=== PATIENT | female | born 1995 ===

== ENCOUNTER 2018-06-20 12:30 | Emergency (ER) | payer OTHER ==
[2018-06-20 12:43] VITALS: BMI 18.5
[2018-06-20] MEDS ORDERED: Lidocaine 2% w Epi 1:100,000 Inj IJ ONE (13:39)
[2018-06-20] MEDS ORDERED: Povidone Iodine Topical 10% Sol ONE (13:42)
--- NOTE | 2018-06-20 14:10 | ED PDOC ---
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 Mother reports that the patient developed a small lump close to the right groin area several months ago, and was evaluated by her PMD, who felt it was not an issue and advised patient to return if she developed fevers, redness, or drainage of the area. Approximately 3x days ago, patient complained of increased tenderness to the area which worsened for the past few days. Redness also worsened, prompting visit to the ED. Patient also reports having a fever 1x week ago, which has since resolved. Otherwise no drainage from the site. 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 - Family History Family History: States: No Known Family Hx - Living Arrangements Living Arrangements: With Family - Social History Current smoker - smoking cessation education provided: No Alcohol: None Drugs: Denies - Home Medications Home Medications: Ambulatory Orders Medication Instructions Recorded Cephalexin [cephalexin] 500 mg PO QID 7 Days cap 06/20/18 - Allergies Allergies/Adverse Reactions: Allergies Allergy/AdvReac Type Severity Reaction Status Date / Time No Known Allergies Allergy Verified 06/20/18 12:41 Review of Systems ROS Statement: Except As Marked, All Systems Reviewed And Found Negative Constitutional: Negative for: Fever (fever 1x week ago, has since resolved) Skin: Positive for: Other (lump to right groin area with increased tenderness and redness. (-) drainage) Physical Exam - Reviewed Nursing Documentation Reviewed: Yes Vital Signs Reviewed: Yes - Physical Exam Appears: Positive for: Well, Non-toxic, No Acute Distress Head Exam: Positive for: ATRAUMATIC, NORMOCEPHALIC Cardiovascular/Chest: Positive for: Regular Rate, Rhythm Respiratory: Positive for: Normal Breath Sounds Pulses-Femoral (L): 2+ Pulses-Femoral (R): 2+ Gastrointestinal/Abdominal: Positive for: Other (approximately 6 cm induration with associated skin erythema over the right suprapubc area. Induration in shaved pubic area. (-) area of drainage, (-) fluctuance. (+) warmth.) Lymphatic: Negative for: Other ((-) inguinal lymph node noted) Neurologic/Psych: Positive for: Alert (patient alert, however her mother answers most of the questions.), Oriented (3x) - ECG O2 Sat by Pulse Oximetry: 98 (RA) Pulse Ox Interpretation: Normal Medical Decision Making Medical Decision Makin:49 Initial impression: 23 year old female with an induration to the right sided groin area. Initial plan: Attempt of aspiration made with 25 gauge needle into the center of the induration without return of purulent material or blood. Patient's mother advised to do frequent warm compresses to the area, and will be given a prescription for oral antibiotics. Patient advised to follow up with PMD or in ED in 2x days for reevaluation. Return sooner if fever develops. Scribe Attestation: Documented byPippa Oveido, acting as a scribe for Montse Johns PA-C. Provider Scribe Attestation: All medical record entries made by the Scribe were at my direction and personally dictated by me. I have reviewed the chart and agree that the record accurately reflects my personal performance of the history, physical exam, medical decision making, and the department course for this patient. I have also personally directed, reviewed, and agree with the discharge instructions and disposition. Disposition - Clinical Impression Clinical Impression: Abscess - Patient ED Disposition Is Patient to be Admitted: No Counseled Patient/Family Regarding: Diagnosis, Need For Followup, Rx Given - Disposition Referrals: Trell Koehler MD [Staff Provider] - Disposition: Routine/Home Disposition Time: 14:50 Condition: STABLE Additional Instructions: Patient advised to apply warm compresses to affected area as often as possible and wear loose fitting clothing. Take full course of antibiotics. Go to PMD or return to ER in 2 days for re-evaluation or sooner if fever develops. Can take Tylenol or Ibuprofen for discomfort. Prescriptions: Cephalexin [cephalexin] 500 mg PO QID 7 Days cap Instructions: Boil (DC) Forms: [facility] (Macedonian) Print Language: SURINAMESE
[2018-06-20 14:51] VITALS: BP 122/78; PULSE 78; RESP 18; TEMP 98
[2018-06-21 21:00] VITALS: O2SAT 98
== END 2018-06-20 14:51 | disposition home or self-care (01) ==
LOC: H.ER 12:30
DX: L02.214 Cutaneous abscess of groin (principal)

== ENCOUNTER 2018-06-22 15:34 | Emergency (ER) | payer OTHER ==
[2018-06-22 15:34] VITALS: BMI 18.5
[2018-06-22 15:42] VITALS: BP 110/72; PULSE 84; RESP 16; TEMP 97; O2SAT 99
[2018-06-22] MEDS ORDERED: Lidocaine 2% w Epi 1:100,000 Inj IJ ONE ×2 (16:14→16:18)
--- NOTE | 2018-06-22 16:26 | ED PDOC ---
HPI: Skin/Bite Injury Time Seen by Provider: 06/22/18 15:47 Chief Complaint (Nursing): Abnormal Skin Integrity Chief Complaint (Provider): Abnormal Skin Integrity History Per: Patient History/Exam Limitations: no limitations Onset/Duration Of Symptoms: Days Current Symptoms Are (Timing): Still Present Quality Of Symptoms: Painful Additional Complaint(s): 23 y/o female with a PMHx of a Deletion of the 4P chromosome with Developmental Delays presents to the ED with mother for evaluation of an abnormal skin integrity. Patient presented on 06/20/2018 for evaluation of a growing abscess to the right sided pelvis at which time evaluated showed that it was no amenable to drainage. Patient sent home with recommendation for warm compress and pre scription for Keflex. Patient advised to follow up in two days with PMD or return to the ER for re-evaluation. Patient presents today stating that the redness to the area continues to grow and has become more painful. Patient reports of applying warm compress and antibiotics as prescribed. Mother states abscess looks like there is a "head" and feels like it may be ready to be drained. Otherwise, patient denies fever, chills, night sweats and drainage from the area. 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 - Surgical History Surgical History: No Surg Hx - Family History Family History: States: Unknown Family Hx - Home Medications Home Medications: Ambulatory Orders Medication Instructions Recorded Cephalexin [cephalexin] 500 mg PO QID 7 Days cap 06/20/18 Sulfamethoxazole/Trimethoprim 2 tab PO BID 7 Days tab 06/22/18 [Bactrim DS 800 mg-160 mg] Ondansetron ODT [Zofran ODT] 4 mg PO Q8 PRN #10 odt 06/24/18 - Allergies Allergies/Adverse Reactions: Allergies Allergy/AdvReac Type Severity Reaction Status Date / Time No Known Allergies Allergy Verified 06/20/18 12:41 Review of Systems ROS Statement: Except As Marked, All Systems Reviewed And Found Negative Skin: Positive for: Other (Abscess) Physical Exam - Reviewed Nursing Documentation Reviewed: Yes Vital Signs Reviewed: Yes - Physical Exam Appears: Positive for: No Acute Distress Pelvic Exam: Positive for: Other (Approximately 6 cm indurated abscess with some fluctuance noted to the right side of the pelvis. Area of porrisble drainage release with surrounding erythema also noted. Very tender to palpation with some blister formation on the lateral portion. ) - ECG O2 Sat by Pulse Oximetry: 99 (RA) Pulse Ox Interpretation: Normal Medical Decision Making Medical Decision Making: Time: 1614 Plan: -- Incision and Drainage -- Xylocaine 2% 2 Epi 1:100,000 5 ml IJ Patient advised to remove packing in 2 days and monitor for signs of worsening infection (fevers, chills, night sweats, increased pain). Take Tylenol and Ibuprofen for pain. Scribe Attestation: Documented by Gopal Modi, acting as a scribe for Montse Johns PA-C. Provider Scribe Attestation: All medical record entries made by the Scribe were at my direction and personally dictated by me. I have reviewed the chart and agree that the record accurately reflects my personal performance of the history, physical exam, medical decision making, and the department course for this patient. I have also personally directed, reviewed, and agree with the discharge instructions and disposition. Disposition - Clinical Impression Clinical Impression: Abscess - Patient ED Disposition Is Patient to be Admitted: No - Disposition Referrals: Yousif Downing MD [Medical Doctor] - Disposition: Routine/Home Disposition Time: 18:05 Condition: STABLE Additional Instructions: Keep packing in for 2 days then can remove it on your own or go to your primary care doctor or return to ER to have packing removed and wound checked. Return to ER if you have fevers, chills, night sweats. Stop taking Keflex and start Bactrim DS as prescribed and complete course. Can continue to use warm compresses to see if can soften and help with drainage. You can remove dressing tomorrow and shower but leave packing in for 2 days. Prescriptions: Sulfamethoxazole/Trimethoprim [Bactrim DS 800 mg-160 mg] 2 tab PO BID 7 Days tab Instructions: Abscess Incision and Drainage (DC) Forms: [employer] (Citizen Of [place]) Print Language: MALAY Procedures - Incision and Drainage Blade Size: 11 I & D Procedure: betadine prep, sterile drapes applied Progress: -- Incision at about 1.5 cm. Purulent material able to be expressed manually. Loculation broken up using forceps with further material expressed thereafter. However, some induration remains. About 0.5 cm of packing placed.
== END 2018-06-22 18:15 | disposition home or self-care (01) ==
LOC: H.ER 15:34
DX: R62.50 Unspecified lack of expected normal physiological development in childhood (principal); L02.219 Cutaneous abscess of trunk, unspecified

== ENCOUNTER 2018-06-24 17:54 | Emergency (ER) | payer OTHER ==
[2018-06-24 17:54] VITALS: BMI 18.5
[2018-06-24 18:03] VITALS: RESP 16
[2018-06-24] MEDS ORDERED: Sodium Chloride 0.9% 1,000 ML IV STA (18:47)
[2018-06-24 19:43] LABS: BASO % 0.2 % (0.0-2.0); EOS # 0.1 K/uL (0.0-0.7); EOS % 0.6 % (0.0-4.0); HEMOGLOBIN 13.6 g/dL (12.0-16.0); LYMPH # 0.6 K/uL (1.0-4.3); LYMPH % 5.5 % (20.0-40.0); MEAN CELL VOLUME 87.7 fl (81.0-99.0); MEAN CORPUSCULAR HEMOGLOBIN 29.8 pg (27.0-31.0); MEAN PLATELET VOLUME 11.4 fl (7.2-11.7); MONO # 0.8 K/uL (0.0-0.8); MONO % 7.4 % (0.0-10.0); NEUT % 86.3 % (50.0-75.0); PLATELET COUNT 152 K/uL (130-400); RBC 4.57 Mil/uL (3.80-5.20); RED CELL DISTRIBUTION WIDTH 13.9 % (11.5-14.5); WHITE BLOOD COUNT 10.4 K/uL (4.8-10.8)
--- NOTE | 2018-06-24 20:14 | ED PDOC ---
HPI: General Adult Time Seen by Provider: 06/24/18 18:19 Chief Complaint (Nursing): GI Problem History Per: Patient Additional Complaint(s): Sports Editor states pt. is currently being treated for a drained abscess on the L pelvic area which is improving. Today they removed the packing. Pt. was feeling well until they got into the car and pt. developed nausea and 3 episodes of vomiting. Reports Also having a frontal headache. Sports Editor states she checked pt's temperature at that time and it was 100 tympanic. States pt. did not take any meds to help with fever or headache. Pt. states since vomiting she's felt much better. Nausea has resolved but headache presists. States she does not feel feverish. Sports Editor notes that pt. has hx of seizures but has not had a seizure >10 years. Denies cough, congestion, diarrhea, head injury, rash, sick contacts, recent travel. Past Medical History Reviewed: Historical Data, Nursing Documentation, Vital Signs Vital Signs: Last Vital Signs Temp 98.3 F 06/24/18 17:59 Pulse 97 H 06/24/18 17:59 Resp 16 06/24/18 17:59 BP 128/67 06/24/18 17:59 Pulse Ox 98 06/24/18 17:59 - Medical History PMH: Seizures Other PMH: Chromosomal abnormality - Family History Family History: States: No Known Family Hx - Home Medications Home Medications: Ambulatory Orders Medication Instructions Recorded Cephalexin [cephalexin] 500 mg PO QID 7 Days cap 06/20/18 Sulfamethoxazole/Trimethoprim 2 tab PO BID 7 Days tab 06/22/18 [Bactrim DS 800 mg-160 mg] - Allergies Allergies/Adverse Reactions: Allergies Allergy/AdvReac Type Severity Reaction Status Date / Time No Known Allergies Allergy Verified 06/20/18 12:41 Review of Systems ROS Statement: Except As Marked, All Systems Reviewed And Found Negative Gastrointestinal: Positive for: Nausea, Vomiting Neurological: Positive for: Headache Physical Exam - Physical Exam Appears: Positive for: Well, Non-toxic, No Acute Distress Head Exam: Positive for: ATRAUMATIC, NORMAL INSPECTION, NORMOCEPHALIC Skin: Positive for: Normal Color, Warm, Rash (healing drained abscess on L pelvic area with minimal discharge but no surrounding erythema) Eye Exam: Positive for: Normal appearance ENT: Positive for: Normal ENT Inspection Neck: Positive for: Normal, Painless ROM Cardiovascular/Chest: Positive for: Regular Rate, Rhythm Respiratory: Positive for: Normal Breath Sounds. Negative for: Respiratory Distress Gastrointestinal/Abdominal: Positive for: Soft. Negative for: Tenderness Back: Negative for: L CVA Tenderness, R CVA Tenderness Neurologic/Psych: Positive for: Alert, Oriented - Laboratory Results Result Diagrams: 06/24/18 19:39 - ECG O2 Sat by Pulse Oximetry: 98 - Progress ED Course And Treament: Labs, CT head w/o contrast, tylenol PO, IV NS hydration ordered. Disposition - Clinical Impression Clinical Impression: Headache, Vomiting, Wound check, abscess - Patient ED Disposition Is Patient to be Admitted: Transfer of Care (Signed out to Terry LORA pending lab results and re-evaluation) - Disposition Disposition Time: 20:00 Condition: STABLE
[2018-06-24 20:24] LABS: ALB/GLOB RATIO 1.3 (1.0-2.1); ALBUMIN 4.7 g/dL (3.5-5.0); ALT/SGPT 35 U/L (9-52); AST/SGOT 38 U/L (14-36); BLOOD UREA NITROGEN 14 mg/dl (7-17); CALCIUM 9.8 mg/dL (8.4-10.2); GFR NON-AFRICAN AMERICAN > 60
[2018-06-24 20:41] LABS: BANDS 3 % (0-2); HYPOCHROMIC SLIGHT; LYMPHOCYTE 8 % (20-50); MICROCYTOSIS SLIGHT; MONOCYTE 9 % (0-10); NEUTROPHIL 80 % (42-75); PLATELET ESTIMATE NORMAL (NORMAL); TOTAL CELLS COUNTED 100
[2018-06-24] MEDS ORDERED: Potassium Chloride 20 mEq ER Tab PO ONE (20:42)
--- NOTE | 2018-06-24 21:07 | ED PDOC ---
- Laboratory Results Result Diagrams: 06/24/18 19:39 06/24/18 19:39 Lab Results: Total Bilirubin 0.6 mg/dl (0.2-1.3) 06/24/18 19:39 AST 38 U/L (14-36) H 06/24/18 19:39 ALT 35 U/L (9-52) 06/24/18 19:39 Alkaline Phosphatase 49 U/L (38-126) 06/24/18 19:39 Total Protein 8.3 G/DL (6.3-8.2) H 06/24/18 19:39 Albumin 4.7 g/dL (3.5-5.0) 06/24/18 19:39 Globulin 3.7 gm/dL (2.2-3.9) 06/24/18 19:39 Albumin/Globulin Ratio 1.3 (1.0-2.1) 06/24/18 19:39 - ECG O2 Sat by Pulse Oximetry: 98 - Progress ED Course And Treament: Case endorsed to account underwriter from Emanuel LORA pending labs, re-eval Patient vomited in ED; IV zofran ordered Patient tolerating PO on re-eval, states she is feeling better Patient/mother educated on findings, discharged with rx Zofran Advised follow up PMD within 2-3 days Return precautions given Disposition - Clinical Impression Clinical Impression: Headache, Vomiting, Wound check, abscess - POA Present On Arrival: None - Disposition Referrals: [facility] [Outside] [facility] [Outside] Disposition: Routine/Home Disposition Time: 23:28 Condition: IMPROVED Prescriptions: Ondansetron ODT [Zofran ODT] 4 mg PO Q8 PRN #10 odt PRN Reason: Nausea/Vomiting Instructions: Headache, Adult, Nausea and Vomiting, Adult Forms: [facility] (E[place]ian)
[2018-06-24 21:44] LABS: SQUAMOUS EPITHIAL 26 /hpf (0-5); URINE BACTERIA RARE (<OCC); URINE BILIRUBIN NEGATIVE (NEGATIVE); URINE BLOOD NEGATIVE (NEGATIVE); URINE CLARITY CLOUDY (Clear); URINE COLOR YELLOW (YELLOW); URINE GLUCOSE (UA) NEG (NEGATIVE); URINE LEUKOCYTE ESTERASE NEG Leu/uL (Negative); URINE PROTEIN 100 mg/dL (NEGATIVE)
[2018-06-24 23:47] VITALS: O2SAT 100
[2018-06-25 06:37] VITALS: BP 112/78; PULSE 87; TEMP 98.2
--- NOTE | 2018-06-25 10:19 | CT ---
Date of service: 06/24/2018 PROCEDURE: CT HEAD WITHOUT CONTRAST. HISTORY: headache COMPARISON: None available. TECHNIQUE: Axial computed tomography images were obtained through the head/brain without intravenous contrast. Radiation dose: Total exam DLP = 994.03 mGy-cm. This CT exam was performed using one or more of the following dose reduction techniques: Automated exposure control, adjustment of the mA and/or kV according to patient size, and/or use of iterative reconstruction technique. FINDINGS: HEMORRHAGE: No intracranial hemorrhage. BRAIN: No mass effect or edema. No atrophy or chronic microvascular ischemic changes. VENTRICLES: Unremarkable. No hydrocephalus. CALVARIUM: Unremarkable. PARANASAL SINUSES: Unremarkable as visualized. No significant inflammatory changes. Incidentally noted is leftward nasal septal deviation. MASTOID AIR CELLS: Unremarkable as visualized. No inflammatory changes. OTHER FINDINGS: None. IMPRESSION: No hemorrhage or mass effect.. Essentially unremarkable exam. Concordant results (preliminary interpretation) provided by [facility].
== END 2018-06-24 23:50 | disposition home or self-care (01) ==
LOC: H.ER 17:54
DX: Z48.00 Encounter for change or removal of nonsurgical wound dressing (principal); R11.2 Nausea with vomiting, unspecified; R51 Headache
CPT/HCPCS: 70450; 80053; 81003; 85025; 87070; 87430; 87804; 99284; J7030